=== PATIENT | female | born 1955 | race Caucasian/White ===

== ENCOUNTER 2022-05-06 12:31 | Emergency (ER) | payer MEDICARE, SELFPAY ==
[2022-05-06 13:13] VITALS: BP 169/95; PULSE 73; RESP 18; TEMP 36.7; O2SAT 99
[2022-05-06 13:17] VITALS: BP 169/95; PULSE 73; RESP 18; TEMP 36.7; O2SAT 99
--- NOTE | 2022-05-06 13:18 | ED.BACK ---
HPI - Back Pain/Injury General Chief Complaint: Back Pain/Injury Stated Complaint: rt leg pain Time Seen by Provider: 05/06/22 13:18 History of Present Illness HPI Narrative: Elizabeth Cadena is a 67 yo female with a PMH of hypothyroid, high cholesterol, [facility] with complaints of left buttock pain that radiates down her leg after doing a lot of heavy lifting such as moving firewood. States pain is currently about 8 out of 10;she has no urinary tract symptoms Related Data Allergies Allergy/AdvReac Type Severity Reaction Status Date / Time bacitracin Allergy Mild Unknown Verified 05/06/22 13:09 [From Neosporin ([id number])] neomycin Allergy Mild Unknown Verified 05/06/22 13:09 [From Neosporin ([id number])] polymyxin B Allergy Mild Unknown Verified 05/06/22 13:09 [From Neosporin ([id number])] Review of Systems Review of Systems: CONSTITUTIONAL: Denies fever, chills, sweats. EYES: Denies visual changes, redness, discharge. ENT: Denies rhinorrhea, congestion, sore throat, otalgia. CARDIOVASCULAR: Denies chest pain, palpitations, edema. RESPIRATORY: Denies dyspnea, wheezing, cough GASTROINTESTINAL: Denies abdominal pain, nausea, vomiting, diarrhea. GENITOURINARY: Denies dysuria, hematuria, abnormal discharge SKIN: Denies rash or itching. NEUROLOGIC: Denies numbness, or focal weakness. PSYCHIATRIC: Denies anxiety or depression. PMFSH Past Medical History Medical History High cholesterol Hypothyroid Social History Social History Smoking status: Never smoker Second hand tobacco smoke exposure: No Alcohol intake: current Comments At time of signature, I agree with nursing past medical, surgical, social and family history. There is no relevant family history pertinent to the presenting complaint. Exam Narrative: GENERAL: This is a well-nourished, well-developed patient, in mild distress. HEAD: normocephalic, atraumatic. EYES: PERRL. Sclera clear/white. Vision is grossly intact. EARS: External ears normal, Hearing grossly intact. NOSE: External nose normal without nasal discharge, nares without redness, no rhinorrhea. THROAT: Mucous membranes moist, NECK: Neck supple, non-tender CARDIOVASCULAR: Regular rate and rhythm without murmurs, gallops, or rubs. RESPIRATORY: Clear to auscultation. Breath sounds equal bilaterally. No wheezes, rales, or rhonchi. GASTROINTESTINAL: Not done SKIN: warm, intact with no suspicious lesions or rash, good texture and turgor. NEURO: awake, alert, and oriented to person, place and time. There were no obvious focal neurologic abnormalities. Steady gait EXTREMITIES: Normal range of motion. BACK: Nontender without deformity pain and lower right butt cheek with pain radiating down into the leg with numbness on the lateral side is able to bend over but cannot get muscles to relax with stretching Course Course Emergency Course: Patient here with pain in her left buttock that radiates into her right side of her leg into her foot with some numbness Started on steroids in addition to the muscle relaxants prescribed by her primary care physician Continue use ibuprofen or Naprosyn and use ice and stretching; demonstrated Piriformis stretching Level of Care: Express Care Visit Vital Signs Vital signs: Vital Signs Temperature 98.1 F 05/06/22 13:13 Pulse Rate 73 05/06/22 13:13 Respiratory Rate 18 05/06/22 13:13 Blood Pressure 169/95 H 05/06/22 13:13 Pulse Oximetry 99 05/06/22 13:13 Oxygen Delivery Room Air 05/06/22 13:13 Temperature 98.1 F 05/06/22 13:17 Pulse Rate 73 05/06/22 13:17 Respiratory Rate 18 05/06/22 13:17 Blood Pressure 169/95 H 05/06/22 13:17 Pulse Oximetry 99 05/06/22 13:17 Oxygen Delivery Room Air 05/06/22 13:17 MDM - Back Pain/Injury MDM Narrative Medical decision
[2022-05-06] MEDS: predniSONE 20 MG TABLET 60 MG PO (13:35)
== END 2022-05-06 13:50 | disposition home or self-care (01) ==
PROVIDERS: Emergency Provider Nurse Practitioner; PCP Internal Medicine
DX: M79.18 Myalgia, other site (principal); E78.00 Pure hypercholesterolemia, unspecified; E03.9 Hypothyroidism, unspecified
CPT/HCPCS: 99213; G0463; J7512

== ENCOUNTER 2022-05-13 11:21 | Outpatient (CLI) | payer MEDICARE, SELFPAY ==
--- NOTE | ~2022-05-13 | XR_ITS ---
EXAMINATION: XR lumbar spine 6V w bending DATE: 05/13/2022 11:52 INDICATION: Right leg pain TECHNIQUE: Anteroposterior, lateral in neutral, flexion and extension, and bilateral oblique views of the lumbar spine, and cone-down lateral view of the lumbosacral junction were obtained. COMPARISON: None. FINDINGS: There is no fracture, dislocation, or subluxation. No laxity is present with flexion or ext ension. There is mild loss of intervertebral disc space height at L5-S1. The vertebral body heights a re normal. 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 IMPRESSION: 1. Mild lumbar spondylosis without acute findings. Reviewed, dictated and finalized at location B.
== END 2022-05-13 11:22 | disposition home or self-care (01) ==
PROVIDERS: PCP Internal Medicine; Visit Provider Physician Assistant
DX: M47.896 Other spondylosis, lumbar region (principal)
CPT/HCPCS: 72114

== ENCOUNTER 2022-06-21 11:00 | Outpatient (RCR) | payer MEDICARE, SELFPAY ==
--- NOTE | 2022-05-24 08:55 | PTOPEVAL ---
PHYSICAL THERAPY EVALUATION AND PLAN OF CARE Thank you for referring Elizabeth Cadena to [facility].? The patient is scheduled to be seen for therapy? 1x/week for 4 weeks. Please review, sign, date and return this plan of care TAYLOR. I agree with and certify that the following plan of care is medically necessary. Referring Physician Date Attending Provider: Connor Santos, BERNARDO Diagnosis right sided low back pain with radiculopathy Subjective Information States that about a month ago Query Text:As Reported By Patient/ she was carrying and lifting Family bricks and firewood and started to experience right sided low back pain with right radiculopathy. She got some steroids that helped a little but there was an event of excruciating pain that hits the right side of the lower leg. She saw a chiropractor who did traction that would help for about 30minutes and then came back. She now reports that the right lower leg and down to her toes feels asleep. In general, standing and walking are better than sitting. Self Report Pain Assessment Right Calf/Calves Reported Pain Level 5 Pain Description Numbness,Tingling Pain Frequency Acute,Continuous Greatest Pain Intensity 10 Right Back Reported Pain Level 2 Pain Description Aching Pain Frequency Acute Lumbar ROM Lumbar Flexion Active Knee Query Text:Hands to: Lumbar Extension (0-40) 20 Query Text:Active in Degrees Lumbar Comments generally WFL rotation and side bend with some compensatory strategies. Lower Extremity Range of Motion General Lower Extremity Range of Motion Gross Lower Extremity Range of Motion generally WFL ROM Comments Lower Extremity Muscle Strength Testing Hip Strength Left Hip Flexion Strength 4+ Good + Hip Extension Strength 4- Good - Hip Abduction Strength 4+ Good + Right Hip Flexion Strength 4+ Good + Hip Extension Strength 3+ Fair + Hip Abduction Strength 3- Fair - Knee Strength Left Knee Flexion Strength 4 Good Knee Extension Strength 5 Normal Knee Strength Comments single leg heel raise x10 Right Knee
--- NOTE | 2022-06-02 10:55 | PCPTNOTE ---
On 06/02/22, the student, Jason Levine, provided care and completed [facility] documentation on this patient. I have reviewed the student's documentation and agree with the findings.
--- NOTE | 2022-06-21 11:57 | PTOPEVAL ---
PHYSICAL THERAPY DISCHARGE NOTE Thank you for referring Elizabeth Cadena to [facility]I recommend further imaging studies to rule out nerve root compression and to rule out Tarsal Tunnel syndrome. D/C from PT at this time with HEP. Please review, sign, date and return this plan of care TAYLOR. I agree with and certify that the following plan of care is medically necessary. Referring Physician Date Attending Provider: Connor Santos PA-C Diagnosis right sided low back pain with radiculopathy Subjective Information States that her back does not Query Text:As Reported By Patient/ hurt anymore but continues to Family have constant numbness in outer 3 toes of right foot. States that two days ago she started to experience a pain in the inner right ankle. Reports she does not have pain in the foot, just numbness in the foot. Lumbar ROM Lumbar Flexion Active Ankle Query Text:Hands to: Lumbar Extension (0-40) 25 Query Text:Active in Degrees Lower Extremity Range of Motion General Lower Extremity Range of Motion Gross Lower Extremity Range of Motion generally WFL ROM Comments Lower Extremity Muscle Strength Testing Hip Strength Left Hip Flexion Strength 4+ Good + Hip Extension Strength 4 Good Hip Abduction Strength 4+ Good + Right Hip Flexion Strength 4+ Good + Hip Extension Strength 3+ Fair + Hip Abduction Strength 3- Fair - Knee Strength Left Knee Flexion Strength 4+ Good + Knee Extension Strength 5 Normal Knee Strength Comments single leg heel raise x10 Right Knee Flexion Strength 4+ Good + Knee Extension Strength 5 Normal Knee Strength Comments unable to perform single leg heel raise on right Ankle Strength Right Ankle Dorsiflexion Strength 4+ Good + Ankle Eversion Strength 3+ Fair + Toe Strength Comments great toe extension: 4/5 strength Posture Posture Standing Position Knee Posture (R) Genu Valgus Ankle/Foot Posture (L) Pronated,(R) Pronated,(R) Calcaneal Eversion Foot Arch Posture (L) Low Arch,(R) Low Arch Special Tests-Lower Extremity Ankle/Foot Special Tests Jean Right Ankle Special Tests Comments tender to palpate right lateral gastroc head; tapping at tarsal tunnel increases tingling in lateral outer toes
== END 2022-06-22 08:25 | disposition home or self-care (01) ==
LOC: ANHPT 11:00
PROVIDERS: PCP Internal Medicine; Visit Provider Physician Assistant
DX: M54.41 Lumbago with sciatica, right side (principal); M54.42 Lumbago with sciatica, left side
CPT/HCPCS: 97110; 97112; 97140; 97162

== ENCOUNTER 2022-11-16 09:58 | Outpatient (CLI) | payer MEDICARE, SELFPAY ==
[2022-11-16 12:33] LABS: Strep Group A RT-PCR NOT DETECTED (Negative)
[2022-11-16 12:54] LABS: Influenza A QL RT-PCR Negative (Negative); Influenza B QL RT-PCR Negative (Negative); RSV RNA, RT-PCR Negative (Negative); SARS-CoV-2 RNA PCR Negative
== END 2022-11-16 09:59 | disposition home or self-care (01) ==
PROVIDERS: PCP Internal Medicine; Visit Provider Internal Medicine
DX: J02.9 Acute pharyngitis, unspecified (principal); R50.9 Fever, unspecified; Z20.822 Contact with and (suspected) exposure to COVID-19
CPT/HCPCS: 87637; 87651